=== PATIENT | male | born 1970 | race Caucasian/White ===

== ENCOUNTER 2019-07-17 13:31 | Emergency (ER) | payer OTHER ==
[~2019-07-17] VITALS: Ht 175.3 cm; Wt 98.6 kg
[2019-07-17] MEDS ORDERED: SIMV20TA22 PO (13:37)
[2019-07-17] MEDS ORDERED: HYDR25TAB PO (13:37)
[2019-07-17] MEDS ORDERED: TETRACAINE 0.5% OPHTH SOLN 4ML OS ONE (15:30)
[2019-07-17] MEDS ORDERED: FLUORESCEIN OPHTH 1 MG STRIP OS ONE (15:30)
[2019-07-17] MEDS ORDERED: OCUF0.25 OS (15:47)
[2019-07-17 16:18] VITALS: BP 152/101
== END 2019-07-17 16:19 | disposition home or self-care (01) ==
LOC: M ED 13:31
DX: S05.02XA Injury of conjunctiva and corneal abrasion without foreign body, left eye, initial encounter (principal); X58.XXXA Exposure to other specified factors, initial encounter; Y92.89 Other specified places as the place of occurrence of the external cause; Y93.9 Activity, unspecified; Y99.0 Civilian activity done for income or pay; I10 Essential (primary) hypertension; E78.5 Hyperlipidemia, unspecified; Z79.899 Other long term (current) drug therapy; Z88.0 Allergy status to penicillin